=== PATIENT | female | born 1980 ===

== ENCOUNTER 2018-12-14 10:06 | Emergency (ER) | payer OTHER ==
[~2018-12-14] VITALS: Ht 170.2 cm; Wt 54.4 kg
[2018-12-14] MEDS ORDERED: STRATTERA80 MG (10:41)
[2018-12-14] MEDS ORDERED: PAXIL CR37.5 MG (10:41)
== END 2018-12-14 11:49 | disposition home or self-care (01) ==
LOC: ER 10:06
DX: T74.11XA Adult physical abuse, confirmed, initial encounter (principal); S00.33XA Contusion of nose, initial encounter; S40.012A Contusion of left shoulder, initial encounter; S40.011A Contusion of right shoulder, initial encounter; S10.83XA Contusion of other specified part of neck, initial encounter; S00.431A Contusion of right ear, initial encounter; Y08.89XA Assault by other specified means, initial encounter; Y07.01 Husband, perpetrator of maltreatment and neglect

== ENCOUNTER 2019-04-17 15:49 | Emergency (ER) | payer OTHER ==
[~2019-04-17] VITALS: Ht 170.2 cm; Wt 56.2 kg
[~2019-04-17 15:49] MED LIST: PAXIL CR37.5 MG; STRATTERA80 MG
== END 2019-04-17 18:58 | disposition home or self-care (01) ==
LOC: ER
DX: M62.830 Muscle spasm of back (principal)